=== PATIENT | male | born 1960 | race African-American/Black ===

== ENCOUNTER 2019-02-09 20:14 | Inpatient (IN) | payer MEDICAID, OTHER ==
[~2019-02-09] VITALS: Ht 177.8 cm; Wt 88.9 kg
[2019-02-09] MEDS ORDERED: SODIUM CHLORIDE 0.9% 1,000 ML IV ONE (21:46)
[2019-02-09] MEDS ORDERED: MORPHINE SULFATE 4 MG/ML CPJ (NOT FOR IM USE) IV STA (21:46)
[2019-02-09] MEDS ORDERED: ONDANSETRON HCL 4MG/2ML INJ IV STA (21:46)
[2019-02-09] MEDS ORDERED: DIATR MEGLU/DIATRIZOATE SOLN 30ML ONE (21:54)
[2019-02-09 22:09] LABS: CHLORIDE 103 mEq/L (98-107)
[2019-02-09 22:11] LABS: INR 1.2; PARTIAL THROMBOPLASTIN TIME 33.1 sec (23.4-31.0); PROTHROMBIN TIME 11.9 sec (9.6-11.0)
[2019-02-09 22:15] LABS: BASOPHILS % 0.6 % (0.0-2.0); EOSINOPHILS % 1.6 % (0.0-5.0); HEMATOCRIT. 41.7 % (42.0-52.0); HEMOGLOBIN. 13.8 g/dL (14.0-18.0); LYMPHOCYTES % 7.8 % (20.0-50.0); MEAN CORPUSCULAR VOLUME 78.4 fL (80.0-94.0); MEAN PLATELET VOLUME 8.4 fl (7.4-10.4); MONOCYTES % 6.9 % (2.0-8.0); NEUTROPHILS % 83.1 % (40.0-76.0); PLATELET 216 x1000/uL (130-400); RED BLOOD CELL COUNT 5.32 mill/uL (4.7-6.1); RED CELL DISTRIBUTION WIDTH 14.4 % (11.6-14.6)
[2019-02-10 00:12] LABS: CLARITY URINE CLEAR (CLEAR); COLOR URINE YELLOW (YELLOW); KETONES URINE 1+ (NEGATIVE); LEUKOCYTE ESTERASE URINE NEGATIVE (NEGATIVE); NITRITE URINE NEGATIVE (NEGATIVE); OCCULT BLOOD URINE NEGATIVE (NEGATIVE); PH URINE 5.5 (4.5-8.0); PROTEIN URINE NEGATIVE (NEGATIVE); SPECIFIC GRAVITY URINE 1.023 (1.005-1.030)
[2019-02-10] MEDS ORDERED: IOHEXOL-300 100 ML BOTTLE ONE (01:40)
[2019-02-10] MEDS ORDERED: MORPHINE SULFATE 4 MG/ML CPJ (NOT FOR IM USE) IV STA (03:08)
[2019-02-10] MEDS ORDERED: ONDANSETRON HCL 4MG/2ML INJ IV STA (03:08)
[2019-02-10] MEDS ORDERED: SODIUM CHLORIDE 0.9% 1,000 ML IV ONE (03:08)
[2019-02-10] MEDS ORDERED: METRONIDAZOLE 500 MG PREMIX 100 ML IV ONE (03:15)
[2019-02-10] MEDS ORDERED: LEVOFLOXACIN 750MG PREMIX 150 ML IV ONE (03:15)
[2019-02-10 04:40] VITALS: BP 171/96
[2019-02-10] MEDS ORDERED: ONDANSETRON HCL 4MG/2ML INJ IV PRN (05:45)
[2019-02-10] MEDS: DEXT 5%/0.45% NACL 1000ML 1,000 ML IV SCH ×2 (05:45→14:48)
[2019-02-10 08:00] VITALS: BP 156/83
[2019-02-10 08:15] LABS: BASOPHILS % 0.6 % (0.0-2.0); EOSINOPHILS % 3.1 % (0.0-5.0); HEMATOCRIT. 37.5 % (42.0-52.0); HEMOGLOBIN. 12.2 g/dL (14.0-18.0); LYMPHOCYTES % 10.2 % (20.0-50.0); MEAN CORPUSCULAR HEMOGLOBIN 25.6 pg (28.0-32.0); MEAN CORPUSCULAR VOLUME 78.7 fL (80.0-94.0); MEAN PLATELET VOLUME 8.4 fl (7.4-10.4); MONOCYTES % 8.5 % (2.0-8.0); NEUTROPHILS % 77.6 % (40.0-76.0); PLATELET 198 x1000/uL (130-400); RED BLOOD CELL COUNT 4.77 mill/uL (4.7-6.1); RED CELL DISTRIBUTION WIDTH 14.3 % (11.6-14.6)
[2019-02-10] MEDS: MORPHINE SULFATE 2 MG/ML CPJ (NOT FOR IM USE) IV PRN ×3 (09:55→19:37)
[2019-02-10] MEDS ORDERED: LISI10TA5 PO (11:06)
[2019-02-10] MEDS ORDERED: HYDR-2510 PO (11:06)
[2019-02-10] MEDS ORDERED: ASPI-1158 PO (11:06)
[2019-02-10 12:00] VITALS: BP 168/84
[2019-02-10] MEDS ORDERED: BISACODYL 10MG SUPP PR NR (12:45)
[2019-02-10] MEDS ORDERED: NA PHOS,M-B/NA PHOS,DI-BA ENEMA 118ML PR ONE (13:00)
[2019-02-10] MEDS: PANTOPRAZOLE 40MG DR TABLET PO SCH (13:40)
[2019-02-10] MEDS: CLONIDINE 0.1MG TABLET PO PRN (14:47)
[2019-02-10 16:00] VITALS: BP 146/77
[2019-02-10 20:00] VITALS: BP 172/92
[2019-02-11] VITALS: BP 149/62
[2019-02-11] MEDS: DEXT 5%/0.45% NACL 1000ML 1,000 ML IV SCH ×2 (00:52→12:58)
[2019-02-11] MEDS: MORPHINE SULFATE 2 MG/ML CPJ (NOT FOR IM USE) IV PRN ×6 (00:54→22:38)
[2019-02-11] MEDS ORDERED: LEVOFLOXACIN 500MG PREMIX 100 ML IV SCH (01:00)
[2019-02-11 04:00] VITALS: BP 182/91
[2019-02-11] MEDS: LEVOFLOXACIN 500MG PREMIX 100 ML IV SCH (05:45)
[2019-02-11] MEDS: PANTOPRAZOLE 40MG DR TABLET PO SCH (05:47)
[2019-02-11 07:26] LABS: BASOPHILS % 0.6 % (0.0-2.0); EOSINOPHILS % 5.9 % (0.0-5.0); HEMATOCRIT. 37.8 % (42.0-52.0); HEMOGLOBIN. 12.5 g/dL (14.0-18.0); LYMPHOCYTES % 19.5 % (20.0-50.0); MEAN CORPUSCULAR HEMOGLOBIN 26.1 pg (28.0-32.0); MEAN CORPUSCULAR VOLUME 78.8 fL (80.0-94.0); MEAN PLATELET VOLUME 8.5 fl (7.4-10.4); MONOCYTES % 10.4 % (2.0-8.0); NEUTROPHILS % 63.6 % (40.0-76.0); PLATELET 214 x1000/uL (130-400); RED CELL DISTRIBUTION WIDTH 14.3 % (11.6-14.6)
[2019-02-11 07:54] VITALS: BP 142/81
[2019-02-11] MEDS: ENOXAPARIN 40MG/0.4ML SYR SUBCUT SCH (09:08)
[2019-02-11] MEDS: AMLODIPINE 10MG TABLET PO SCH (09:09)
[2019-02-11 10:16] LABS: CHLORIDE 104 mEq/L (98-107)
[2019-02-11 10:37] LABS: AMYLASE 58 IU/L (25-115)
[2019-02-11 10:38] LABS: TOTAL IRON BINDING CAPACITY 205 ug/dL (250-450)
[2019-02-11 11:46] VITALS: BP 143/79
[2019-02-11 12:09] LABS: *BARBITURATES SCREEN URINE NEGATIVE (NEGATIVE)
[2019-02-11 12:10] LABS: *AMPHETAMINES SCREEN URINE NEGATIVE (NEGATIVE); *BENZODIAZEPINES SCREEN URINE NEGATIVE (NEGATIVE); *COCAINE SCREEN URINE PRESUMTIVE POSITIVE (NEGATIVE)
[2019-02-11 12:11] LABS: METHADONE URINE SCREEN NEGATIVE (NEGATIVE); OPIATES URINE SCREEN PRESUMTIVE POSITIVE (NEGATIVE)
[2019-02-11 12:12] LABS: CANNABINOID URINE SCREEN PRESUMTIVE POSITIVE (NEGATIVE); PHENCYCLIDINE URINE SCREEN PRESUMTIVE POSITIVE (NEGATIVE)
[2019-02-11 13:16] LABS: FERRITIN 263 ng/mL (22-322)
[2019-02-11 13:57] LABS: HEPATITIS A AB IGM NEGATIVE (NEGATIVE)
[2019-02-11 13:58] LABS: HEPATITIS B SURFACE ANTIGEN NEGATIVE
[2019-02-11 16:00] VITALS: BP 124/65
[2019-02-11] MEDS ORDERED: POTASSIUM CHLORIDE 20MEQ TABLET SR PO NR (19:30)
[2019-02-11 20:00] VITALS: BP 148/87
[2019-02-11] MEDS ORDERED: BISACODYL 10MG SUPP PR NR (21:00)
[2019-02-12] VITALS: BP 148/85
[2019-02-12] MEDS: DEXT 5%/0.45% NACL 1000ML 1,000 ML IV SCH (02:35)
[2019-02-12] MEDS: MORPHINE SULFATE 2 MG/ML CPJ (NOT FOR IM USE) IV PRN ×2 (02:38→08:55)
[2019-02-12 04:00] VITALS: BP 178/96
[2019-02-12] MEDS: LEVOFLOXACIN 500MG PREMIX 100 ML IV SCH (05:37)
[2019-02-12 06:18] LABS: HIV SCREEN 4G Non Reactive (Non Reactive)
[2019-02-12] MEDS: PANTOPRAZOLE 40MG DR TABLET PO SCH (06:35)
[2019-02-12 06:53] LABS: BASOPHILS % 0.8 % (0.0-2.0); EOSINOPHILS % 6.3 % (0.0-5.0); HEMATOCRIT. 40.8 % (42.0-52.0); HEMOGLOBIN. 13.5 g/dL (14.0-18.0); LYMPHOCYTES % 26.3 % (20.0-50.0); MEAN CORPUSCULAR HEMOGLOBIN 26.1 pg (28.0-32.0); MEAN PLATELET VOLUME 8.5 fl (7.4-10.4); MONOCYTES % 10.1 % (2.0-8.0); NEUTROPHILS % 56.5 % (40.0-76.0); PLATELET 277 x1000/uL (130-400); RED BLOOD CELL COUNT 5.17 mill/uL (4.7-6.1); RED CELL DISTRIBUTION WIDTH 14.3 % (11.6-14.6)
[2019-02-12 07:29] LABS: CHLORIDE 102 mEq/L (98-107)
[2019-02-12 08:00] VITALS: BP 165/93
[2019-02-12] MEDS: CLONIDINE 0.1MG TABLET PO PRN (08:54)
[2019-02-12] MEDS: AMLODIPINE 10MG TABLET PO SCH (08:54)
[2019-02-12 08:55] VITALS: BP 165/93
[2019-02-12] MEDS: ENOXAPARIN 40MG/0.4ML SYR SUBCUT SCH (08:55)
[2019-02-13] MEDS ORDERED: FAMOTIDINE 20MG TABLET PO SCH (09:00)
[2019-02-13] MEDS ORDERED: LEVOFLOXACIN 500MG TABLET PO SCH (11:00)
[2019-02-14 10:06] LABS: SACCHAROMYCES CEREVISIAE IGG <20.0 Units (0.0-24.9); SACCHAROMYCES CEREVISIAE IGM <20.0 Units (0.0-24.9)
== END 2019-02-12 14:50 | disposition home or self-care (01) | DRG 254 ==
LOC: ER 20:14 → 6EST 02-10 01:13 → EDBEDREQTM 02-10 03:15 → EDBEDREQ 02-10 03:15 → ENRESERV 02-10 03:57
PROVIDERS: ADMIT Internal Medicine; ATTEND Emergency Medicine
DX: K58.1 Irritable bowel syndrome with constipation (principal); D64.9 Anemia, unspecified; F12.10 Cannabis abuse, uncomplicated; F14.10 Cocaine abuse, uncomplicated; F15.90 Other stimulant use, unspecified, uncomplicated; F17.210 Nicotine dependence, cigarettes, uncomplicated; I10 Essential (primary) hypertension; J44.9 Chronic obstructive pulmonary disease, unspecified; M47.816 Spondylosis without myelopathy or radiculopathy, lumbar region; Z80.3 Family history of malignant neoplasm of breast; Z80.42 Family history of malignant neoplasm of prostate; Z87.19 Personal history of other diseases of the digestive system; Z79.899 Other long term (current) drug therapy; Z79.82 Long term (current) use of aspirin; Z88.8 Allergy status to other drugs, medicaments and biological substances
CPT/HCPCS: 36415; 71045; 74177; 80048; 80076; 80305; 82150; 82378; 82728; 83540; 83550; 83605; 86256; 86671; 86705; 86709; 86803; 87340; 87389; 93005; 96374; 99285; C1893; J1650; J1956; J2270; J2405; J3490; J7030; J7040; J7070; Q9963; Q9967

== ENCOUNTER 2021-07-23 14:43 | Emergency (ER) | payer MEDICAID, OTHER ==
[~2021-07-23] VITALS: Ht 177.8 cm; Wt 81.0 kg
[~2021-07-23 14:43] MED LIST: ASPI-1406 PO; HYDR50TA PO; LISI10TA26 PO
[2021-07-23] MEDS ORDERED: HYDR-4001 MT ×2 (15:51→15:54)
[2021-07-23 16:49] VITALS: BP 127/83
== END 2021-07-23 16:50 | disposition home or self-care (01) ==
LOC: ER 14:43
DX: M54.9 Dorsalgia, unspecified (principal); M25.522 Pain in left elbow; F14.10 Cocaine abuse, uncomplicated; F12.10 Cannabis abuse, uncomplicated; F15.10 Other stimulant abuse, uncomplicated; I10 Essential (primary) hypertension; Z88.0 Allergy status to penicillin; Z79.82 Long term (current) use of aspirin
CPT/HCPCS: 99283

== ENCOUNTER 2021-07-30 16:07 | Emergency (ER) | payer OTHER ==
[~2021-07-30] VITALS: Ht 185.4 cm; Wt 101.0 kg
[~2021-07-30 16:07] MED LIST changes: +HYDR-4001 MT
[2021-07-30] MEDS ORDERED: MORPHINE SULFATE 4 MG/ML CPJ (NOT FOR IM USE) IV STA (18:20)
[2021-07-30] MEDS ORDERED: TETANUS, DIPHTHERIA, PERTUSSIS VAC/PF 0.5ML (>10YR OLD) IM ONE (18:30)
[2021-07-30 18:45] LABS: BASOPHILS % 0.8 % (0.0-2.0); EOSINOPHILS % 2.2 % (0.0-5.0); HEMATOCRIT. 39.5 % (42.0-52.0); HEMOGLOBIN. 12.8 g/dL (14.0-18.0); LYMPHOCYTES % 24.6 % (20.0-50.0); MEAN CORPUSCULAR HEMOGLOBIN 25.2 pg (28.0-32.0); MEAN CORPUSCULAR VOLUME 77.4 fL (80.0-94.0); MEAN PLATELET VOLUME 7.9 fl (7.4-10.4); MONOCYTES % 8.4 % (2.0-8.0); PLATELET 219 x1000/uL (130-400); RED CELL DISTRIBUTION WIDTH 14.9 % (11.6-14.6)
[2021-07-30 18:51] LABS: CHLORIDE 105 mEq/L (98-107)
[2021-07-30 20:15] LABS: EOSINOPHILS % 2.1 % (0.0-5.0); HEMATOCRIT. 37.9 % (42.0-52.0); HEMOGLOBIN. 12.7 g/dL (14.0-18.0); MEAN CORPUSCULAR HEMOGLOBIN 25.8 pg (28.0-32.0); MEAN PLATELET VOLUME 8.2 fl (7.4-10.4); MONOCYTES % 9.9 % (2.0-8.0); PLATELET 208 x1000/uL (130-400); RED BLOOD CELL COUNT 4.92 mill/uL (4.7-6.1); RED CELL DISTRIBUTION WIDTH 14.8 % (11.6-14.6)
[2021-07-30] MEDS ORDERED: LORAZEPAM 0.5MG TABLET PO ONE (20:45)
[2021-07-30] MEDS ORDERED: NAPR500T7 MT (21:45)
[2021-07-30 22:16] VITALS: BP 168/87
== END 2021-07-30 22:17 | disposition home or self-care (01) ==
LOC: ER 16:07
DX: S02.85XA Fracture of orbit, unspecified, initial encounter for closed fracture (principal); M54.2 Cervicalgia; R41.0 Disorientation, unspecified; I10 Essential (primary) hypertension; F14.10 Cocaine abuse, uncomplicated; F12.10 Cannabis abuse, uncomplicated; F15.10 Other stimulant abuse, uncomplicated; Z88.8 Allergy status to other drugs, medicaments and biological substances; Z79.899 Other long term (current) drug therapy; X58.XXXA Exposure to other specified factors, initial encounter; Y93.89 Activity, other specified; Y92.89 Other specified places as the place of occurrence of the external cause; Y99.8 Other external cause status
CPT/HCPCS: 36415; 70450; 70486; 71045; 72040; 80053; 82962; 85025; 90471; 90715; 96374; 99285; J2270

== ENCOUNTER 2024-03-05 13:33 | Emergency (ER) | payer MEDICARE, OTHER ==
[~2024-03-05] VITALS: Ht 177.8 cm; Wt 79.4 kg
[~2024-03-05 13:33] MED LIST changes: +NAPR500T7 MT
[2024-03-05 13:50] VITALS: O2SAT 100
[2024-03-05 15:30] VITALS: BP 180/90; PULSE 77; RESP 16; TEMP 97.9
[2024-03-05] MEDS ORDERED: HYDR50TA PO (15:40)
[2024-03-05] MEDS ORDERED: ASPI-1406 PO (15:40)
[2024-03-05] MEDS ORDERED: LISI10TA26 PO (15:40)
[2024-03-05] MEDS ORDERED: IBUP-2028 MT (15:40)
[2024-03-05] MEDS: IBUPROFEN 600MG TABLET PO NR (15:53)
== END 2024-03-05 16:00 | disposition home or self-care (01) ==
LOC: ER 13:33
DX: M79.641 Pain in right hand (principal); F32.A Depression, unspecified; I10 Essential (primary) hypertension; Z88.8 Allergy status to other drugs, medicaments and biological substances
CPT/HCPCS: 73110; 73130; 99284

== ENCOUNTER 2024-06-19 22:02 | Emergency (ER) | payer MEDICAID, MEDICARE, OTHER ==
[~2024-06-19] VITALS: Ht 175.3 cm; Wt 78.0 kg
[~2024-06-19 22:02] MED LIST changes: +IBUP-2028 MT
[2024-06-19 22:10] VITALS: O2SAT 100
[2024-06-19] MEDS: MORPHINE SULFATE 4 MG/ML INJ (FOR IV/IM USE) IV STA ×2 (22:23→23:52)
[2024-06-19] MEDS: ONDANSETRON HCL 4MG/2ML INJ IV STA (22:23)
[2024-06-19] MEDS: SODIUM CHLORIDE 0.9% 1,000 ML IV ONE (22:24)
[2024-06-19] MEDS: LIDOCAINE HCL/EPINEPHRINE 1%-EPI 1:100,000 20ML VIAL INFIL ONE (22:30)
[2024-06-19] MEDS ORDERED: TETANUS, DIPHTHERIA, PERTUSSIS VAC/PF 0.5ML (>10YR OLD) IM ONE (22:30)
[2024-06-19 22:37] LABS: CHLORIDE 106 mEq/L (98-107); POTASSIUM 3.3 mEq/L (3.5-5.1); SODIUM 140 mEq/L (136-145)
[2024-06-19 22:38] LABS: CARBON DIOXIDE 24 mEq/L (21-32)
[2024-06-19 22:39] LABS: CALCIUM 8.7 mg/dL (8.7-10.4)
[2024-06-19 22:42] LABS: BASOPHILS % 1.2 % (0.0-2.0); DIFFERENTIAL COMMENT 0; EOSINOPHILS % 2.3 % (0.0-5.0); HEMATOCRIT. 37.4 % (42.0-52.0); HEMOGLOBIN. 12.3 g/dL (14.0-18.0); LYMPHOCYTES % 40.7 % (20.0-50.0); MEAN CORPUSCULAR HEMOGLOBIN 25.6 pg (28.0-32.0); MEAN CORPUSCULAR HGB CONC 32.8 g/dL (31.0-37.0); MEAN CORPUSCULAR VOLUME 77.9 fL (80.0-94.0); MEAN PLATELET VOLUME 8.3 fl (7.4-10.4); MONOCYTES % 6.8 % (2.0-8.0); PARTIAL THROMBOPLASTIN TIME 24.7 sec (23.4-31.0); PLATELET 236 x1000/uL (130-400); RED CELL DISTRIBUTION WIDTH 16.1 % (11.6-14.6); WHITE BLOOD COUNT 4.5 x1000/uL (4.5-11.0)
[2024-06-19 22:43] LABS: CREATININE 1.1 mg/dL (0.6-1.3); GLUCOSE 98 mg/dL (70-105)
[2024-06-19 22:44] LABS: ETHANOL BLOOD 41 mg/dL (<10); TROPONIN I HIGH SENSITIVITY 28 ng/L (3.0-53); UREA NITROGEN BLOOD 14 mg/dL (9-23)
[2024-06-19 22:45] LABS: ALANINE AMINOTRANSFERASE 243 IU/L (10-49); ASPARTATE AMINOTRANSFERASE 556 IU/L (<34)
[2024-06-19 22:46] LABS: BILIRUBIN DIRECT 0.2 mg/dL (<=3.0); BILIRUBIN TOTAL 0.8 mg/dL (0.1-1.0); PROTEIN TOTAL 6.6 g/dL (6.0-8.3)
[2024-06-19] MEDS: IOHEXOL-300 100 ML BOTTLE ONE (23:52)
[2024-06-20] MEDS: ONDANSETRON HCL 4MG/2ML INJ IV STA (00:16)
[2024-06-20 00:17] VITALS: BP 209/102; PULSE 86; RESP 21; TEMP 37.11408; O2SAT 94
[2024-06-20] MEDS: TETANUS, DIPHTHERIA, PERTUSSIS VAC/PF 0.5ML (>10YR OLD) IM ONE (00:21)
[2024-06-20] MEDS: LIDOCAINE HCL/PF 1% 10 MG/ML 5ML VIAL INFIL ONE (00:23)
== END 2024-06-20 00:32 | disposition short-term general hospital (02) ==
LOC: ER 22:02
DX: S22.060A Wedge compression fracture of T7-T8 vertebra, initial encounter for closed fracture (principal); S22.080A Wedge compression fracture of T11-T12 vertebra, initial encounter for closed fracture; S36.116A Major laceration of liver, initial encounter; S00.31XA Abrasion of nose, initial encounter; M54.2 Cervicalgia; M54.50 Low back pain, unspecified; I10 Essential (primary) hypertension; F32.9 Major depressive disorder, single episode, unspecified; F14.10 Cocaine abuse, uncomplicated; F12.10 Cannabis abuse, uncomplicated; F15.10 Other stimulant abuse, uncomplicated; Z88.0 Allergy status to penicillin; Z79.899 Other long term (current) drug therapy; Z88.1 Allergy status to other antibiotic agents; Z79.82 Long term (current) use of aspirin; Z79.1 Long term (current) use of non-steroidal anti-inflammatories (NSAID); V03.00XA Pedestrian on foot injured in collision with car, pick-up truck or van in nontraffic accident, initial encounter; Y93.89 Activity, other specified; Y92.89 Other specified places as the place of occurrence of the external cause; Y99.8 Other external cause status
CPT/HCPCS: 80076; 80048; 80320; 83880; 83690; 85025; 85610; 85730; 86850; 86900; 86901; 84484; 36415; 71045; 73130; 70450; 70486; 71260; 72125; 72128; 72131; 74177; 93005; 96361; 96374; 96375; 96376; 99291; 90715; 90471; Q9967; J2405; J2270; J7030; Z7610 ×2; G0480

== ENCOUNTER 2024-09-27 20:15 | Emergency (ER) | payer MEDICARE, MEDICAID ==
[~2024-09-27] VITALS: Ht 175.3 cm; Wt 75.0 kg
[~2024-09-27 20:15] MED LIST changes: +NAPR-1486 MT; -NAPR500T7 MT
[2024-09-27 20:25] VITALS: TEMP 98.2; O2SAT 98
[2024-09-28 06:58] LABS: HEMATOCRIT. 35.7 % (42.0-52.0); HEMOGLOBIN. 11.6 g/dL (14.0-18.0); MEAN CORPUSCULAR HEMOGLOBIN 25.5 pg (28.0-32.0); MEAN CORPUSCULAR HGB CONC 32.4 g/dL (31.0-37.0); MEAN CORPUSCULAR VOLUME 78.5 fL (80.0-94.0); MEAN PLATELET VOLUME 8.8 fl (7.4-10.4); PLATELET 177 x1000/uL (130-400); RED BLOOD CELL COUNT 4.54 mill/uL (4.7-6.1); RED CELL DISTRIBUTION WIDTH 14.5 % (11.6-14.6); WHITE BLOOD COUNT 2.2 x1000/uL (4.5-11.0)
[2024-09-28 06:59] VITALS: BP 195/99; PULSE 86; RESP 16; O2SAT 98
[2024-09-28 07:06] LABS: CARBON DIOXIDE 27 mEq/L (21-32); CHLORIDE 102 mEq/L (98-107); POTASSIUM 3.2 mEq/L (3.5-5.1); SODIUM 135 mEq/L (136-145)
[2024-09-28 07:07] LABS: CALCIUM 8.4 mg/dL (8.7-10.4)
[2024-09-28 07:12] LABS: CREATININE 0.9 mg/dL (0.6-1.3); GLUCOSE 96 mg/dL (70-105); TROPONIN I HIGH SENSITIVITY 37 ng/L (3.0-53); UREA NITROGEN BLOOD 11 mg/dL (9-23)
[2024-09-28 07:13] LABS: ALANINE AMINOTRANSFERASE 25 IU/L (10-49); ALBUMIN 3.7 g/dL (3.2-4.8); ASPARTATE AMINOTRANSFERASE 67 IU/L (<34)
[2024-09-28 07:14] LABS: BILIRUBIN DIRECT 0.2 mg/dL (<=3.0); BILIRUBIN TOTAL 0.6 mg/dL (0.1-1.0); PROTEIN TOTAL 6.2 g/dL (6.0-8.3)
[2024-09-28 07:34] LABS: DIFFERENTIAL COMMENT 1
[2024-09-28 09:41] LABS: ATYPICAL LYMPHOCYTES 2; MICROCYTOSIS 1+; PLATELET ESTIMATE NORMAL
== END 2024-09-28 16:58 | disposition left against medical advice (07) ==
LOC: ER 20:15 → CANBEDREQ 09-28 16:48 → ER 09-28 16:58
DX: R07.9 Chest pain, unspecified (principal); I11.9 Hypertensive heart disease without heart failure; Z79.1 Long term (current) use of non-steroidal anti-inflammatories (NSAID); Z79.82 Long term (current) use of aspirin; Z79.899 Other long term (current) drug therapy; Z88.0 Allergy status to penicillin; Z88.1 Allergy status to other antibiotic agents
CPT/HCPCS: 36415; 71045; 80048; 80076; 83880; 84484; 85025; 93005; 99285